=== PATIENT | female | born 1945 | race Caucasian/White ===

== ENCOUNTER 2022-04-10 17:29 | Inpatient (IN) | payer OTHER ==
[~2022-04-10] VITALS: Ht 160 cm; Wt 65.7 kg
[2022-04-10] MEDS ORDERED: PIPERACILLIN-TAZO 4.5GM 100 ML IV ONE (18:15)
[2022-04-10] MEDS ORDERED: SODIUM CHLORIDE 0.9% 1,000 ML IVB ONE (18:15)
[2022-04-10] MEDS ORDERED: VANCOMYCIN PER PHARMACY 0 MG IV SCH (18:15)
[2022-04-10 18:46] LABS: Basophils # (auto) 0 10 ^3/uL (0-0.2); Basophils % (auto) 0.1 % (0.0-2.0); Eosinophils # (auto) 0 10 ^3/uL (0-0.8); Hematocrit 37.5 % (36.0-46.0); Hemoglobin 11.7 g/dL (12.2-16.2); Lymphocytes # (auto) 2.9 10 ^3/uL (0.4-5.4); Lymphocytes % (auto) 11.2 % (10.0-50.0); Mean Corpuscular Hemoglobin 24.7 pg (28.0-32.0); Mean Corpuscular Hgb Conc. 31.2 g/dL (32.0-36.0); Mean Corpuscular Volume 79.2 fL (80.0-100.0); Monocytes # (auto) 0.9 10 ^3/uL (0-1.3); Monocytes % (auto) 3.4 % (0.0-12.0); Neutrophils # (auto) 22.3 10 ^3/uL (1.6-8.6); Neutrophils % (auto) 85.3 % (37.0-80.0); Nucleated Red Blood Cells % 0.1 %; Red Blood Cells 4.74 10^6/uL (4.0-5.20); Red Cell Distribution Width 14.6 % (11.8-14.3); White Blood Cell 26.2 10^3/uL (4.4-10.8)
[2022-04-10 19:02] LABS: INR 1.08 (0.9-1.15); Partial Thromboplastin Time 20.3 sec (24.6-33.4)
[2022-04-10 19:03] LABS: Albumin 2.6 g/dL (3.4-5.0); Anion Gap 7 (5-15); Blood Alcohol < 3.0 mg/dL (0-5); Carbon Dioxide 32 mmol/L (21-32); Chloride 109 mmol/L (98-107); Glucose 174 mg/dL (74-106); Potassium 3.3 mmol/L (3.5-5.1); Sodium 148 mmol/L (136-145)
[2022-04-10 19:07] LABS: Alanine Aminotransferase 30 U/L (13-56); Alkaline Phosphatase 71 U/L (45-117); Aspartate Aminotransferase 21 U/L (15-37); BUN/Creatinine Ratio 33.9; Bilirubin, Total 0.6 mg/dL (0.2-1.0); Blood Urea Nitrogen 38 mg/dL (7-18); Creatine Kinase IFCC 48 U/L (26-192); GFR African American 61 mL/min; GFR Non-African American 50 mL/min; Total Protein 7.7 g/dL (6.4-8.2)
[2022-04-10 19:08] LABS: Lactic Acid w/Reflex 3.1 mmol/L (0.4-2.0)
[2022-04-10 19:32] LABS: Calcium 13.8 mg/dL (8.5-10.1)
[2022-04-10] MEDS: VANCOMYCIN 750mg/250ml 250 ML IV SCH (20:00)
[2022-04-10] MEDS ORDERED: VANCOMYCIN 1GM/250ML 250 ML IV ONE (20:00)
[2022-04-10] MEDS ORDERED: POTASSIUM CHL 20 Meq TABLET PO ONE (21:00)
[2022-04-10] MEDS ORDERED: ACETAMINOPHEN 325 MG TAB PO PRN (22:00)
[2022-04-10] MEDS ORDERED: ONDANSETRON HCL 4 MG/2 ML VIAL IV PRN (22:00)
[2022-04-10] MEDS ORDERED: ALBUTEROL SULF 2.5 MG/0.5ML(0.5%) NEB SOLN NEB PRN (22:00)
[2022-04-10] MEDS ORDERED: MORPHINE SULFATE INJ 2 MG/ml SYRG IV PRN (22:00)
[2022-04-10] MEDS ORDERED: HYDROcodone-ACET 5/325MG TAB PO PRN (22:00)
[2022-04-10] MEDS ORDERED: DOCUSATE SOD 100 MG CAP PO PRN (22:00)
[2022-04-10] MEDS ORDERED: MAALOX PLUS or MAALOX 30 ML PO PRN (22:00)
[2022-04-10] MEDS: SODIUM CHLORIDE 0.9% 1,000 ML IV SCH (23:10)
[2022-04-10] MEDS: PIPERACILLIN-TAZOB 3.375GM 100 ML IV SCH (23:10)
[2022-04-10 23:25] VITALS: BP 168/89
[2022-04-11] MEDS: PIPERACILLIN-TAZOB 3.375GM 100 ML IV SCH ×3 (06:55→22:22)
[2022-04-11 07:40] LABS: Basophils # (auto) 0 10 ^3/uL (0-0.2); Basophils % (auto) 0.1 % (0.0-2.0); Eosinophils # (auto) 0 10 ^3/uL (0-0.8); Hemoglobin 10.8 g/dL (12.2-16.2); Lymphocytes # (auto) 1.9 10 ^3/uL (0.4-5.4); Lymphocytes % (auto) 6.4 % (10.0-50.0); Mean Corpuscular Hemoglobin 25.2 pg (28.0-32.0); Mean Corpuscular Hgb Conc. 31.6 g/dL (32.0-36.0); Mean Corpuscular Volume 79.7 fL (80.0-100.0); Monocytes # (auto) 0.8 10 ^3/uL (0-1.3); Monocytes % (auto) 2.6 % (0.0-12.0); Neutrophils # (auto) 26.6 10 ^3/uL (1.6-8.6); Neutrophils % (auto) 90.9 % (37.0-80.0); Red Blood Cells 4.27 10^6/uL (4.0-5.20); Red Cell Distribution Width 14.6 % (11.8-14.3); White Blood Cell 29.3 10^3/uL (4.4-10.8)
[2022-04-11] MEDS: SODIUM CHLORIDE 0.9% 1,000 ML IV SCH ×3 (08:00→22:05)
[2022-04-11 08:01] LABS: BUN/Creatinine Ratio 33.3; Potassium 3.5 mmol/L (3.5-5.1)
[2022-04-11] MEDS ORDERED: SODIUM CHLORIDE 0.9% 1,000 ML IV SCH (12:30)
[2022-04-11] MEDS ORDERED: ALBUTEROL MEDNEB 2.5 mg/3ml NEB ONE (18:09)
[2022-04-11] MEDS: VANCOMYCIN 750mg/250ml 250 ML IV SCH (20:12)
[2022-04-12] VITALS (10 sets, daily range): BP systolic 139–154; BP diastolic 67–79
[2022-04-12] MEDS: PIPERACILLIN-TAZOB 3.375GM 100 ML IV SCH ×3 (06:10→22:03)
[2022-04-12] MEDS: SODIUM CHLORIDE 0.9% 1,000 ML IV SCH (06:25)
[2022-04-12] MEDS: hydrALAZINE HCL 20 MG/ML VL IV PRN ×2 (09:01→17:55)
[2022-04-12 09:51] LABS: Basophils # (auto) 0 10 ^3/uL (0-0.2); Basophils % (auto) 0.1 % (0.0-2.0); Eosinophils # (auto) 0 10 ^3/uL (0-0.8); Eosinophils % (auto) 0.2 % (0.0-7.0); Hemoglobin 11.2 g/dL (12.2-16.2); Lymphocytes # (auto) 1.5 10 ^3/uL (0.4-5.4); Lymphocytes % (auto) 7.2 % (10.0-50.0); Mean Corpuscular Hemoglobin 24.9 pg (28.0-32.0); Mean Corpuscular Hgb Conc. 31.8 g/dL (32.0-36.0); Mean Corpuscular Volume 78.2 fL (80.0-100.0); Monocytes # (auto) 0.5 10 ^3/uL (0-1.3); Monocytes % (auto) 2.4 % (0.0-12.0); Neutrophils # (auto) 18.4 10 ^3/uL (1.6-8.6); Neutrophils % (auto) 90.1 % (37.0-80.0); Red Blood Cells 4.48 10^6/uL (4.0-5.20); Red Cell Distribution Width 14.5 % (11.8-14.3); White Blood Cell 20.4 10^3/uL (4.4-10.8)
[2022-04-12 12:46] LABS: Anion Gap 14 (5-15); BUN/Creatinine Ratio 22.9; Blood Urea Nitrogen 44 mg/dL (7-18); Carbon Dioxide 20 mmol/L (21-32); Chloride 119 mmol/L (98-107); GFR African American 33 mL/min; GFR Non-African American 27 mL/min; Glucose 170 mg/dL (74-106); Sodium 153 mmol/L (136-145)
[2022-04-12] MEDS ORDERED: ZOLEDRONIC ACID 4 MG in SODIUM CHL 0.9% 100 ML IV ONE (13:00)
[2022-04-12] MEDS ORDERED: D5W/SOD CHLO 0.9% 1,000 ML IV SCH (13:45)
[2022-04-12 14:59] LABS: Urine Bacteria FEW /hpf (None Seen); Urine Blood 2+ /uL (Negative); Urine Hyaline Cast FEW /lpf (0 - 2); Urine Mucus FEW (None Seen); Urine Specific Gravity 1.014 (1.001-1.035); Urine WBC 41 /hpf (0 - 5)
[2022-04-12] MEDS ORDERED: FUROSEMIDE 20 MG/2 ML VIAL IV ONE (21:30)
[2022-04-12] MEDS: D5W/SOD CHL 0.45% 1,000 ML IV SCH (22:02)
[2022-04-12] MEDS ORDERED: DENOSUMAB 120 MG SUBCUT ONE (22:15)
[2022-04-13] VITALS (46 sets, daily range): BP systolic 92–170; BP diastolic 48–90
[2022-04-13] MEDS: PIPERACILLIN-TAZOB 3.375GM 100 ML IV SCH ×3 (05:38→22:13)
[2022-04-13 06:08] LABS: Basophils # (auto) 0 10 ^3/uL (0-0.2); Basophils % (auto) 0.1 % (0.0-2.0); Monocytes # (auto) 0.6 10 ^3/uL (0-1.3); Neutrophils # (auto) 14.7 10 ^3/uL (1.6-8.6); Red Blood Cells 3.72 10^6/uL (4.0-5.20); White Blood Cell 16.5 10^3/uL (4.4-10.8)
[2022-04-13 06:11] LABS: Eosinophils # (auto) 0.1 10 ^3/uL (0-0.8); Eosinophils % (auto) 0.4 % (0.0-7.0); Hematocrit 29.4 % (36.0-46.0); Hemoglobin 9.1 g/dL (12.2-16.2); Lymphocytes # (auto) 1.2 10 ^3/uL (0.4-5.4); Lymphocytes % (auto) 7.2 % (10.0-50.0); Mean Corpuscular Hemoglobin 24.5 pg (28.0-32.0); Mean Corpuscular Hgb Conc. 31.1 g/dL (32.0-36.0); Monocytes % (auto) 3.5 % (0.0-12.0); Neutrophils % (auto) 88.8 % (37.0-80.0); Red Cell Distribution Width 14.4 % (11.8-14.3)
[2022-04-13 06:30] LABS: BUN/Creatinine Ratio 26.1; Calcium 12.3 mg/dL (8.5-10.1)
[2022-04-13 06:39] LABS: Potassium 2.8 mmol/L (3.5-5.1)
[2022-04-13] MEDS ORDERED: POTASSIUM CHL 20MEQ/100ML 100 ML IV ONE (07:00)
[2022-04-13] MEDS: hydrALAZINE HCL 20 MG/ML VL IV PRN (08:47)
[2022-04-13] MEDS ORDERED: POTASSIUM CHL 20MEQ/100ML 100 ML IV SCH (09:30)
[2022-04-13] MEDS: POTASSIUM CHL 20MEQ/100ML 100 ML IV SCH ×2 (10:21→11:59)
[2022-04-13] MEDS: D5W/SOD CHL 0.45% 1,000 ML IV SCH ×4 (10:50→22:13)
[2022-04-13] MEDS: FUROSEMIDE 20 MG/2 ML VIAL IV SCH (13:56)
[2022-04-13] MEDS ORDERED: ZOLEDRONIC ACID 4 MG in SODIUM CHL 0.9% 100 ML IV ONE (15:15)
[2022-04-13 20:44] LABS: Albumin 1.9 g/dL (3.4-5.0); BUN/Creatinine Ratio 22.5; Calcium 11.4 mg/dL (8.5-10.1); Potassium 3.3 mmol/L (3.5-5.1)
[2022-04-13 20:46] LABS: Bilirubin, Total 0.6 mg/dL (0.2-1.0); Total Protein 6.2 g/dL (6.4-8.2)
[2022-04-14 05:03] VITALS: BP 104/61
[2022-04-14] MEDS: PIPERACILLIN-TAZOB 3.375GM 100 ML IV SCH ×3 (05:42→22:34)
[2022-04-14] MEDS: D5W/SOD CHL 0.45% 1,000 ML IV SCH (05:42)
[2022-04-14 06:27] LABS: Basophils # (auto) 0 10 ^3/uL (0-0.2); Eosinophils # (auto) 0.2 10 ^3/uL (0-0.8); Eosinophils % (auto) 1.2 % (0.0-7.0); Lymphocytes # (auto) 1.1 10 ^3/uL (0.4-5.4); Mean Corpuscular Volume 78.2 fL (80.0-100.0)
[2022-04-14 06:32] LABS: Basophils % (auto) 0.2 % (0.0-2.0); Hematocrit 28.2 % (36.0-46.0); Lymphocytes % (auto) 7.4 % (10.0-50.0); Monocytes # (auto) 0.6 10 ^3/uL (0-1.3); Monocytes % (auto) 3.9 % (0.0-12.0); Neutrophils # (auto) 12.5 10 ^3/uL (1.6-8.6); Neutrophils % (auto) 87.3 % (37.0-80.0); Red Blood Cells 3.61 10^6/uL (4.0-5.20); Red Cell Distribution Width 14.8 % (11.8-14.3); White Blood Cell 14.4 10^3/uL (4.4-10.8)
[2022-04-14 06:50] LABS: Potassium 3.2 mmol/L (3.5-5.1)
[2022-04-14 06:55] LABS: % Iron Saturation 18.8 % (15-50)
[2022-04-14 07:01] LABS: Bilirubin, Total 0.6 mg/dL (0.2-1.0); CRP High Sensitivity 4.69 mg/dL (< 0.3); Total Protein 6.1 g/dL (6.4-8.2)
[2022-04-14 07:03] LABS: Thyroid Stimulating Hormone 3.01 uIU/mL (0.358-3.74)
[2022-04-14 07:05] LABS: Ferritin 184.9 ng/mL (10-322); Free T4 (Free Thyroxine) 0.67 ng/dL (0.89-1.76)
[2022-04-14 07:06] LABS: Folate (Folic Acid) 3.98 ng/mL (5.38-24)
[2022-04-14 09:00] VITALS: BP 126/70
[2022-04-14] MEDS: FUROSEMIDE 20 MG/2 ML VIAL IV SCH (09:38)
[2022-04-14 13:00] VITALS: BP 135/69
[2022-04-14] MEDS ORDERED: POTASSIUM EFFERVESENT TAB 25 MEQ PO ONE (14:15)
[2022-04-14 17:00] VITALS: BP 168/84
[2022-04-14 22:00] VITALS: BP 146/78
[2022-04-15 05:00] VITALS: BP 148/77
[2022-04-15] MEDS: PIPERACILLIN-TAZOB 3.375GM 100 ML IV SCH ×3 (05:54→21:28)
[2022-04-15 06:50] LABS: BUN/Creatinine Ratio 22.3; Calcium 9.6 mg/dL (8.5-10.1); Magnesium 1.5 mg/dL (1.6-2.6); Potassium 3.6 mmol/L (3.5-5.1)
[2022-04-15 09:00] VITALS: BP 135/74
[2022-04-15 09:06] LABS: Immunoglobulin G, Serum 1576 mg/dL (586-1602)
[2022-04-15 12:47] VITALS: BP 148/78
[2022-04-15 16:53] VITALS: BP 154/84
[2022-04-15] MEDS: Ensure Pudding Vanilla 4 oz Cup PO SCH (18:42)
[2022-04-15 22:00] VITALS: BP 126/65
[2022-04-16 05:00] VITALS: BP 152/80
[2022-04-16] MEDS: PIPERACILLIN-TAZOB 3.375GM 100 ML IV SCH ×2 (05:39→14:26)
[2022-04-16 07:21] LABS: Basophils # (auto) 0 10 ^3/uL (0-0.2); Eosinophils # (auto) 0.1 10 ^3/uL (0-0.8); Monocytes # (auto) 0.8 10 ^3/uL (0-1.3)
[2022-04-16 07:26] LABS: Basophils % (auto) 0.1 % (0.0-2.0); Eosinophils % (auto) 0.9 % (0.0-7.0); Hematocrit 26.9 % (36.0-46.0); Hemoglobin 9.1 g/dL (12.2-16.2); Lymphocytes # (auto) 1.6 10 ^3/uL (0.4-5.4); Lymphocytes % (auto) 9.7 % (10.0-50.0); Mean Corpuscular Hemoglobin 25.6 pg (28.0-32.0); Mean Corpuscular Hgb Conc. 33.7 g/dL (32.0-36.0); Mean Corpuscular Volume 76.1 fL (80.0-100.0); Neutrophils # (auto) 13.6 10 ^3/uL (1.6-8.6); Neutrophils % (auto) 84.3 % (37.0-80.0); Red Blood Cells 3.53 10^6/uL (4.0-5.20); Red Cell Distribution Width 14.8 % (11.8-14.3); White Blood Cell 16.2 10^3/uL (4.4-10.8)
[2022-04-16 07:44] LABS: Potassium 3.5 mmol/L (3.5-5.1)
[2022-04-16 07:53] LABS: Albumin 1.9 g/dL (3.4-5.0); BUN/Creatinine Ratio 21.6; Bilirubin, Total 0.6 mg/dL (0.2-1.0); Total Protein 5.8 g/dL (6.4-8.2)
[2022-04-16] MEDS: Ensure Pudding Vanilla 4 oz Cup PO SCH ×2 (08:00→12:27)
[2022-04-16 09:00] VITALS: BP 151/82
[2022-04-16] MEDS ORDERED: MULTIPLE VITAMINS W/ MINERALS TAB PO SCH (10:00)
[2022-04-16 13:00] VITALS: BP 138/65
== END 2022-04-16 17:05 | DRG 641 ==
LOC: ER 17:29 → EDBD 17:29 → OVERFLOW 21:52 → DOU IN ICU 04-12 21:50 → TELE-CENTR 04-13 22:48
PROVIDERS: ADMIT Hospitalist; ATTEND Hospitalist
DX: E83.52 Hypercalcemia (principal); N17.9 Acute kidney failure, unspecified; E86.0 Dehydration; I10 Essential (primary) hypertension; R09.02 Hypoxemia; Z20.822 Contact with and (suspected) exposure to COVID-19; Z60.2 Problems related to living alone; N85.8 Other specified noninflammatory disorders of uterus
CPT/HCPCS: 36415; 70450; 71045; 71250; 72170; 72192; 74176; 76856; 80048; 80053; 80202; 80320; 81001; 82550; 82607; 82668; 82728; 82746; 82784; 82962; 83540; 83550; 83605; 83615; 83735; 83880; 83883; 84132; 84155; 84165; 84439; 84443; 84484; 85025; 85610; 85652; 85730; 86141; 86334; 87040; 87070; 87077; 87081; 87086; 87186; 87205; 87426; 87804; 92610; 93005; 96365; 96366; 96367; 97110; 97116; 97163; 97530; 99291; G0378; J2543; J3480; J3489